=== PATIENT | male | born 1985 | race Caucasian/White ===

== ENCOUNTER 2017-07-06 04:03 | Emergency (ER) | payer BC ==
[2017-07-06] MEDS ORDERED: SODIUM CHLORIDE 1,000 ML IV STA (04:14)
--- NOTE | 2017-07-06 04:14 | PDOC ---
History of Present Illness - General Stated Complaint: ABD PAIN Time Seen by Provider: 07/06/17 04:14
[2017-07-06] MEDS ORDERED: METOCLOPRAMIDE HCL INJECTION 10 MG/2 ML VIAL IVPB ONE (04:15)
[2017-07-06 04:47] LABS: BASO % 0.3 % (0-2.0); EOS % 0.4 % (0-4.5); HEMOGLOBIN 15.7 GM/dL (11.7-16.9); LYMPH % 3.7 % (8-40); MCH 30.2 pg (25.7-33.7); MCHC 34.8 g/dl (32.0-35.9); MEAN CELL VOLUME 86.8 fl (80-96); MEAN PLT VOLUME 9.5 fl (7.5-11.1); MONO % 2.3 % (3.8-10.2); NEUT % 93.3 % (42.8-82.8); PLATELET COUNT 212 K/MM3 (134-434); RBC 5.18 M/mm3 (4.00-5.60); RDW 13.1 % (11.9-15.9)
--- NOTE | 2017-07-06 04:50 | PDOC ---
History of Present Illness - General History Source: Patient, Spouse Exam Limitations: No Limitations - History of Present Illness Initial Comments: 07/06/17 04:59 The patient is a 31 year old male, with no significant past medical history, who presents to the emergency department with constant cramping abdominal pain for the past two days. The patient additionally reports fever, chills, nausea and vomiting. He reports 6-7 episodes of nonbloody nonbilious emesis. The patient reports that he recently returned from a trip to [facility] two days ago and does report that he experienced a couple episodes of indigestion while he was there although he states that he avoided street food. Denies headache, shortness of breath, chest pain, diarrhea, constipation or dysuria. The patient' s is at the bedside. Allergies: None reported. Past Surgical History: None reported. Social History: Non-smoker. Denies alcohol or drug use. <Carly Earl - Last Filed: 07/06/17 06:37> <Austin Layton - Last Filed: 07/06/17 06:53> - General Stated Complaint: ABD PAIN Time Seen by Provider: 07/06/17 04:14 Past History <Carly Earl - Last Filed: 07/06/17 06:37> <Austin Layton - Last Filed: 07/06/17 06:53> - Past Medical History Allergies/Adverse Reactions: Allergies Allergy/AdvReac Type Severity Reaction Status Date / Time No Known Allergies Allergy Verified 07/06/17 04:57 Home Medications: Ambulatory Orders NK [No Known Home Medication] 07/06/17 Review of Systems - Review of Systems Able to Perform ROS?: Yes Comments:: 07/06/17 04:59 A complete review of 10 out of 10 review of systems is taken and is negative apart from what is previously mentioned below and in the HPI. <Carly Earl - Last Filed: 07/06/17 06:37> *Physical Exam - Physical Exam Comments: 07/06/17 05:08 Vitals: Triage vital signs reviewed. General Appearance: No acute distress, well nourished, well developed. Head: Atraumatic, normocephalic. Eyes: Pupils equal round reactive, extraocular movements intact. Neck: Supple. No nuchal rigidity. Chest Wall: Nontender. Cardiac: Regular rate and rhythm. No murmurs, no rubs, no gallops. Lungs: Clear to auscultation bilaterally, good air movement bilaterally. Abdomen: Diffuse tenderness with rebound, maximal in the LUQ. Rectal: Exam deferred. Extremities: Full range of motion to all extremities, no cyanosis, clubbing, or edema. Neuro: AOX3. Cranial Nerves 2-12 grossly intact. Strength intact to all extremities. Sensation intact to all extremities. Normal gait. Skin: Warm and dry, no rashes or lesions, no petechiae. Psych: Normal mood, normal affect. <Carly Earl - Last Filed: 07/06/17 06:37> Heart Score/ECG Review - ECG Impressions Comment:: 07/06/17 06:50 EKG performed at 5:10 AM. Demonstrates sinus rhythm 65 bpm. GA interval 180. QRS 96. QTC 420. Normal axis. No ST elevations no T-wave inversions. ? Q wave in v2. Will repeat ekg Interpreted by me <Austin Layton - Last Filed: 07/06/17 06:53> ED Treatment Course - LABORATORY CBC & Chemistry Diagram: 07/06/17 04:30 07/06/17 04:30 - ADDITIONAL ORDERS Additional order review: Laboratory Results 07/06/17 04:30 VBG pH 7.42 POC VBG pCO2 40.7 POC VBG pO2 56.1 H Mixed VBG HCO3 26.2 H 07/06/17 04:30 RBC 5.18 MCV 86.8 MCHC 34.8 RDW 13.1 MPV 9.5 Neutrophils % 93.3 H Lymphocytes % 3.7 L Monocytes % 2.3 L Eosinophils % 0.4 Basophils % 0.3 - Medications Given in the ED: ED Medications Discontinued Medications Generic Name Dose Route Start Last Admin Trade Name Freq PRN Reason Stop Dose Admin Metoclopramide HCl 10 mg 07/06/17 04:15 07/06/17 04:50 Reglan Injection - IVPB 07/06/17 04:16 10 mg ONCE ONE Administration Morphine Sulfate 4 mg 07/06/17 04:51 07/06/17 04:56 Morphine Injection - IVPUSH 07/06/17 04:52 4 mg ONCE ONE Administration <Carly Earl - Last Filed: 07/06/17 06:37> - LABORATORY CBC & Chemistry Diagram: 07/06/17 04:30 07/06/17 04:30 <Austin Layton - Last Filed: 07/06/17 06:53> Medical Decision Making - Medical Decision Making 07/06/17 04:59 The patient is a 31 year old male, with no significant past medical history, who presents to the emergency department with constant cramping abdominal pain for the past two days. The patient additionally reports fever, chills, nausea and vomiting. He reports 6-7 episodes of nonbloody nonbilious emesis. The patient reports that he recently returned from a trip to [place] two days ago and does report that he experienced a couple episodes of indigestion while he was there although he states that he avoided street food. Denies headache, shortness of breath, chest pain, diarrhea, constipation or dysuria. The patient' s is at the bedside. Allergies: None reported. Past Surgical History: None reported. Social History: Non-smoker. Denies alcohol or drug use. <Carly Earl - Last Filed: 07/06/17 06:37> - Medical Decision Making Moderate to severe diffuse abdominal pain with mild guarding. 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 We'll order labs pain medications IV fluids observe and reassess Patient feeling better after fluids on repeat abdominal exam still with mild guarding now maximal in the lower quadrants. Labs notable for a slightly elevated white blood cell count as well as an elevated bilirubin After additional discussion with patient and family we'll proceed with CT abdomen and pelvis IV contrast 7am. Dr. Linda to follow-up results and reassess. <Austin Layton - Last Filed: 07/06/17 06:53> *DC/Admit/Observation/Transfer - Attestations Scribe Attestion: 07/06/17 05:00 Documentation prepared by Carly Earl, acting as medical staff services manager for Austin Layton MD. <Carly Earl - Last Filed: 07/06/17 06:37> <Austin Layton - Last Filed: 07/06/17 06:53> Diagnosis at time of Disposition: Abdominal pain Qualifiers: Abdominal location: generalized Qualified Code(s): R10.84 - Generalized abdominal pain
[2017-07-06] MEDS ORDERED: SODIUM CHLORIDE 0.9% 1000 ML INFUS.BAG IV ONE (04:51)
[2017-07-06] MEDS ORDERED: morphine CARPU-JECT 4 MG/1 ML DISP.SYRIN IVPUSH ONE (04:51)
[2017-07-06 04:52] LABS: VENOUS PC02 40.7 mmHg (38-52); VENOUS PH 7.42 (7.32-7.42)
[2017-07-06 04:53] LABS: VENOUS PO2 56.1 mmHg (28-48)
[2017-07-06] MEDS ORDERED: morphine SULFATE 4 MG/ML VIAL ONE (04:54)
[2017-07-06 04:59] VITALS: BMI 26.4
[2017-07-06 05:11] LABS: URINE APPEARANCE CLEAR; URINE BILIRUBIN NEGATIVE (<2.0 mg/dL); URINE COLOR AMBER; URINE GLUCOSE (UA) NEGATIVE (NEGATIVE); URINE KETONE 1+ (NEGATIVE); URINE LEUK ESTERASE NEGATIVE (NEGATIVE); URINE NITRITE NEGATIVE (NEGATIVE); URINE UROBILINOGEN NEGATIVE mg/dL (0.2-1.0)
[2017-07-06 05:15] LABS: URINE PROTEIN 1+ (NEGATIVE)
[2017-07-06 05:16] LABS: ALBUMIN 4.5 g/dl (3.4-5.0); ANION GAP 6 (8-16); BILIRUBIN,TOTAL 2.2 mg/dL (0.2-1.0); BLOOD UREA NITROGEN 20 mg/dL (7-18); CHLORIDE 106 mmol/L (98-107); CO2 27 mmol/L (21-32); CREATININE 0.9 mg/dL (0.7-1.3); GLUCOSE,RANDOM 114 mg/dL (74-106); SGPT/ALT 20 U/L (12-78); SODIUM 139 mmol/L (136-145); TOT PROT 7.9 g/dl (6.4-8.2)
[2017-07-06 05:17] LABS: INR 1.02 (0.82-1.09); PROTHROMBIN TIME (PATIENT) 11.5 SEC (9.7-13.0)
[2017-07-06 05:18] LABS: EPI CELLS RARE /HPF (FEW); URINE MUCUS MANY
[2017-07-06 05:20] LABS: ACTIVATED PTT 30.9 SECONDS (26.9-34.4)
[2017-07-06 05:25] LABS: ALK PHOS 72 U/L (45-117); POTASSIUM 4.8 mmol/L (3.5-5.1); SGOT/AST 30 U/L (15-37)
[2017-07-06 06:49] LABS: BILIRUBIN,DIRECT 0.2 mg/dL (0.0-0.2)
[2017-07-06 07:42] VITALS: BP 105/58; PULSE 70; TEMP 97.6
[2017-07-06] MEDS ORDERED: SODIUM CHLORIDE 0.9% 500 ML INFUS.BAG IV ONE (07:49)
--- NOTE | 2017-07-06 08:33 | PDOC ---
*Physical Exam - Vital Signs Last Vital Signs Temp Pulse Resp BP Pulse Ox 97.6 F 70 16 105/58 98 07/06/17 07:41 07/06/17 07:44 07/06/17 07:41 07/06/17 07:41 07/06/17 07:44 ED Treatment Course - LABORATORY CBC & Chemistry Diagram: 07/06/17 04:30 07/06/17 04:30 - ADDITIONAL ORDERS Additional order review: Laboratory Results 07/06/17 07/06/17 07/06/17 06:27 04:35 04:30 PT with INR INR PTT (Actin FS) VBG pH POC VBG pCO2 POC VBG pO2 Mixed VBG HCO3 Sodium Potassium Chloride Carbon Dioxide Anion Gap BUN Creatinine Creat Clearance w eGFR Random Glucose Lactic Acid 1.1 Calcium Total Bilirubin Direct Bilirubin 0.2 AST ALT Alkaline Phosphatase Troponin I Total Protein Albumin Lipase 100 Urine Color Georgie Urine Appearance Clear Urine pH 7.0 Ur Specific [place] 1.030 Urine Protein 1+ H Urine Glucose (UA) Negative Urine Ketones 1+ H Urine Blood Negative Urine Nitrite Negative Urine Bilirubin Negative Urine Urobilinogen Negative Ur Leukocyte Esterase Negative Urine WBC (Auto) <1 Urine RBC (Auto) 2 Ur Epithelial Cells Rare Urine Mucus Many 07/06/17 07/06/17 07/06/17 04:30 04:30 04:30 PT with INR INR PTT (Actin FS) VBG pH 7.42 POC VBG pCO2 40.7 POC VBG pO2 56.1 H Mixed VBG HCO3 26.2 H Sodium 139 Potassium 4.8 Chloride 106 Carbon Dioxide 27 Anion Gap 6 L BUN 20 H Creatinine 0.9 Creat Clearance w eGFR > 60 Random Glucose 114 H Lactic Acid Calcium 9.0 Total Bilirubin 2.2 H Direct Bilirubin AST 30 ALT 20 Alkaline Phosphatase 72 Troponin I < 0.02 Total Protein 7.9 Albumin 4.5 Lipase Urine Color Urine Appearance Urine pH Ur Specific [place] Urine Protein Urine Glucose (UA) Urine Ketones Urine Blood Urine Nitrite Urine Bilirubin Urine Urobilinogen Ur Leukocyte Esterase Urine WBC (Auto) Urine RBC (Auto) Ur Epithelial Cells Urine Mucus 07/06/17 04:30 PT with INR 11.50 INR 1.02 PTT (Actin FS) 30.9 VBG pH POC VBG pCO2 POC VBG pO2 Mixed VBG HCO3 Sodium Potassium Chloride Carbon Dioxide Anion Gap BUN Creatinine Creat Clearance w eGFR Random Glucose Lactic Acid Calcium Total Bilirubin Direct Bilirubin AST ALT Alkaline Phosphatase Troponin I Total Protein Albumin Lipase Urine Color Urine Appearance Urine pH Ur Specific [place] Urine Protein Urine Glucose (UA) Urine Ketones Urine Blood Urine Nitrite Urine Bilirubin Urine Urobilinogen Ur Leukocyte Esterase Urine WBC (Auto) Urine RBC (Auto) Ur Epithelial Cells Urine Mucus 07/06/17 04:30 RBC 5.18 MCV 86.8 MCHC 34.8 RDW 13.1 MPV 9.5 Neutrophils % 93.3 H Lymphocytes % 3.7 L Monocytes % 2.3 L Eosinophils % 0.4 Basophils % 0.3 - Medications Given in the ED: ED Medications Discontinued Medications Generic Name Dose Route Start Last Admin Trade Name Freq PRN Reason Stop Dose Admin Sodium Chloride 1,000 mls @ 1,000 mls/hr 07/06/17 04:14 07/06/17 04:50 Normal Saline - IV 07/06/17 05:13 1,000 mls/hr ASDIR STA Administration Metoclopramide HCl 10 mg 07/06/17 04:15 07/06/17 04:50 Reglan Injection - IVPB 07/06/17 04:16 10 mg ONCE ONE Administration Morphine Sulfate 4 mg 07/06/17 04:51 07/06/17 04:56 Morphine Injection - IVPUSH 07/06/17 04:52 4 mg ONCE ONE Administration Sodium Chloride 1,000 ml 07/06/17 04:51 07/06/17 05:38 Normal Saline - IV 07/06/17 04:52 1,000 ml ONCE ONE Administration Sodium Chloride 1,000 ml 07/06/17 07:49 07/06/17 08:11 Normal Saline - IV 07/06/17 07:50 1,000 ml ONCE ONE Administration Medical Decision Making - Medical Decision Making 07/06/17 08:30 pt signed out to me by Dr. Layton pending abdominal CT for abdominal pain, nausea and vomiting. When I evaluated the patient, pain was completely gone and paitnet and his were refusing CT and asking to go home. Patient is now tolerating Po and states that his nausea is gone, as well as his pain. Abodmen is non tender. Given that symptoms are resolved, will discharge home. Patient understands that he must return immediately to the ED for new or recurrent symptoms. 07/06/17 08:31 *DC/Admit/Observation/Transfer Diagnosis at time of Disposition: Abdominal pain Qualifiers: Abdominal location: generalized Qualified Code(s): R10.84 - Generalized abdominal pain - Discharge Dispostion Disposition: HOME Condition at time of disposition: Good Decision to Admit order: No - Referrals - Patient Instructions Printed Discharge Instructions: DI for Abdominal Pain-Adult Additional Instructions: Return to the ED for severe pain, severe nausea and vomiting, if you are unable to tolerate anything by mouth. - Post Discharge Activity
--- NOTE | 2017-07-06 09:57 | EKG ---
Test Reason : Blood Pressure : / mmHG Vent. Rate : 065 BPM Atrial Rate : 065 BPM P-R Int : 180 ms QRS Dur : 096 ms QT Int : 404 ms P-R-T Axes : 082 075 059 degrees QTc Int : 420 ms NORMAL SINUS RHYTHM SEPTAL INFARCT , AGE UNDETERMINED ABNORMAL ECG NO PREVIOUS ECGS AVAILABLE Confirmed by MD Verónica, Dhaval ([id number]) on 07/06/2017 9:57:42 AM Referred By: Confirmed By:Dhaval Sanches MD
--- NOTE | 2017-07-06 14:56 | EKG ---
Test Reason : Blood Pressure : / mmHG Vent. Rate : 053 BPM Atrial Rate : 053 BPM P-R Int : 180 ms QRS Dur : 090 ms QT Int : 410 ms P-R-T Axes : 070 067 051 degrees QTc Int : 384 ms SINUS BRADYCARDIA OTHERWISE NORMAL ECG WHEN COMPARED WITH ECG OF 06-JUL-2017 05:10, NO SIGNIFICANT CHANGE WAS FOUND Confirmed by MD Sanches Edward ([id number]) on 07/06/2017 2:56:20 PM Referred By: Confirmed By:Dhaval Sanches MD
== END 2017-07-06 09:06 | disposition home or self-care (01) ==
LOC: JER 04:03
PROC: 3E033NZ Introduction of Analgesics, Hypnotics, Sedatives into Peripheral Vein, Percutaneous Approach (ICD-10-PCS; principal; 2017-07-06)
PROC: 3E033GC Introduction of Other Therapeutic Substance into Peripheral Vein, Percutaneous Approach (ICD-10-PCS; 2017-07-06)
PROC: 3E0337Z Introduction of Electrolytic and Water Balance Substance into Peripheral Vein, Percutaneous Approach (ICD-10-PCS; 2017-07-06)
DX: R10.84 Generalized abdominal pain (principal)
CPT/HCPCS: 71045-TC-FY; 74019-TC-FY; 80053; 81003; 81015; 82248; 82803; 83605; 83690; 84484; 85025; 85610; 85730; 87040; 87086; 87207; 93005; 93010; 99284-25; J7030